=== PATIENT | male | born 1965 | race Caucasian/White ===

== ENCOUNTER → 2018-12-25 | Outpatient (CLI) | payer OTHER ==
--- NOTE | 2018-12-25 16:43 | PCVCIMAG ---
APPROVED REPORT Study performed: 12/25/2018 14:59:59 Exam: Stress Echocardiogram Indication: chest pressure, Abnormal calcium score Patient Location: Echo lab Stress Nurse: Trini Crouch RN Status: routine Ht: 6 ft 4 in HR: 122 bpm BP: 160/100 mmHg Rhythm: Sinus Tachycardia Procedure The patient underwent an Exercise Stress Test using the Stas Protocol. Blood pressure, heart rate, and EKG were monitored. An Echocardiogram was performed by weatherization field technician in four stages in quad fashion. At peak stress, four selected images were obtained and placed side by side with resting images for comparison. Stress Test Details Stress Test: Exercise stress testing was performed using a Stas protocol. HR Resting HR: 122 bpmMax Heart Rate (APMHR): 167 bpm Max HR Achieved: 171 bpmTarget HR (85% APMHR): 141 bpm % of APMHR: 102 Recovery HR: 129 bpm HR response to stress: Accelerated HR response to stress BP Resting BP: 160/100 mmHg Max BP: 220/110 mmHg Recovery BP: 184/100 mmHg BP response to stress: Abnormal hypotensive response to stress. ECG Resting ECG: Sinus Tachycardia Stress ECG: Sinus Tachycardia Recovery ECG: Sinus Tachycardia Clinical Reason for Termination: Maximal effort Exercise duration: 8 min 03 sec Highest Stage Achieved: Stage 3: 3.4 mph at 14% grade. Exercise capacity: 10.40 METs Overall Exercise Capacity for Age: Poor Pre-Stress Echo The resting Echocardiogram showed normal left ventricular contractility with an estimated Ejection Fraction of about 55-60%. Normal wall motion in all segments on baseline images. Post-Stress Echo The stress Echocardiogram showed normal left ventricular contractility with an estimated Ejection Fraction of about 60-65%. Normal augmentation of wall motion in all segments on post stress images. Clinical No clinical or ECG evidence for ischemia. Conclusion Clinical Response: Non-ischemic Exercise Capacity: Below Average Stress ECG Response: Non-ischemic Stress Echo Images: Non-ischemic The left ventricle is normal in size and wall thickness in both the rest and stress images. Other Information Study Quality: Technically Difficult <Conclusion> The left ventricle is normal in size and wall thickness in both the rest and stress images.
== END | disposition home or self-care (01) ==
LOC: PCVCIMAG 14:22
PROVIDERS: ATTEND Internal Medicine Cardiovascular Disease
DX: R07.89 Other chest pain (principal); R93.1 Abnormal findings on diagnostic imaging of heart and coronary circulation
CPT/HCPCS: 93325; 93351